=== PATIENT | female | born 1975 | race Caucasian/White ===

== ENCOUNTER 2016-12-07 19:47 | Emergency (ER) | payer SELFPAY ==
[~2016-12-07] VITALS: Ht 162.6 cm; Wt 120.0 kg
[~2016-12-07 19:47] MED LIST: FAMO40TA52 PO; HYD25 PO; MAG355OR14 PO; NAPR-260 PO
[2016-12-07 19:49] VITALS: Ht 162.6 cm; Wt 120.0 kg
[2016-12-07] MEDS ORDERED: IBUP-1542 PO (21:15)
[2016-12-07] MEDS ORDERED: AZIT250T94 PO (21:15)
[2016-12-07] MEDS ORDERED: PROM5SYR2 PO (21:15)
--- NOTE | 2016-12-07 21:17 | ERD ---
ER Documentation Chief Complaint Date/Time DATE: 12/07/16 TIME: 21:16 Chief Complaint cough x 5 days HPI 1-year-old female presents with productive cough for last 5 days. She has a burning sensation in her throat when she coughs. She also has fevers. She denies any sustained anterior chest pain, vomiting, abdominal pain, diarrhea. She denies any previous lung problems. ROS All systems reviewed and are negative except as per history of present illness. Medications Home Meds Active Scripts Ibuprofen* (Motrin*) 600 Mg Tab, 600 MG PO Q6, #15 TAB Prov:GIORGI CHUNG MD 12/07/16 Promethazine HCl/Codeine (Prometh-Codein 6.25-10 mg/5 ml) 5 Ml Syrup, 5 ML PO QID for 5 Days 6 OZ Prov:GIORGI CHUNG MD 12/07/16 Azithromycin* (Zithromax*) 250 Mg Tablet, 250 MG PO .ZPACK DIRECTED, #6 TAB TAKE 500 MG (2 TABS) THE FIRST DAY THEN 250 MG (1 TAB) DAYS 2-5 Prov:GIORGI CHUNG MD 12/07/16 Hydrochlorothiazide* (Hydrochlorothiazide*) 25 Mg Tab, 25 MG PO DAILY, #30 TAB Prov:ISABELLE FRANCO MD 09/24/16 Famotidine* (Famotidine*) 40 Mg Tablet, 40 MG PO HS, #30 TAB Prov:ISABELLE FRANCO MD 09/24/16 Mag Hydrox/Al Hydrox/Simeth (Maalox Advanced Suspension) 355 Ml Oral.susp, 2 TSP PO TID for PAIN, #24 OZ Prov:ISABELLE FRANCO MD 09/24/16 Naproxen* (Naprosyn*) 500 Mg Tablet, 500 MG PO BID Y for PAIN AND/OR INFLAMMATION, #30 TAB Prov:ISABELLE FRANCO MD 09/24/16 Allergies Allergies: Coded Allergies: No Known Allergy (Unverified , 09/24/16) PMhx/Soc History of Surgery: No Anesthesia Reaction: No Hx Neurological Disorder: No Hx Respiratory Disorders: No Hx Cardiac Disorders: No Hx Psychiatric Problems: No Hx Miscellaneous Medical Probl: No Hx Alcohol Use: No Hx Substance Use: No Hx Tobacco Use: No Physical Exam Vitals Vital Signs Date Time Temp Pulse Resp B/P Pulse Ox O2 Delivery O2 Flow Rate FiO2 12/07/16 19:49 98.7 106 20 167/96 98 Physical Exam Const: [] Alert, [id number] per Head: Atraumatic Eyes: Normal Conjunctiva ENT: Normal External Ears, Nose and Mouth. Neck: Full range of motion..~ No meningismus. Resp: Clear to auscultation bilaterally. No rales or retractions appreciated. Cardio: Regular rate and rhythm, no murmurs Abd: Soft, non tender, non distended. Normal bowel sounds Skin: No petechiae or rashes Back: No midline or flank tenderness Ext: No cyanosis, or edema Neur: Awake and alert Psych: Normal Mood and Affect Results 24 hrs Current Medications Medications (Trade) Dose Ordered Sig/Chavo Route PRN Reason Start Time Stop Time Status Last Admin Dose Admin Promethazine HCl/ Codeine (Phenergan/ Codeine) 10 ml ONCE ONCE PO 12/07/16 21:30 12/07/16 21:31 Ibuprofen (Motrin) 600 mg ONCE ONCE PO 12/07/16 21:30 12/07/16 21:31 Procedures/MDM Patient presents with a productive cough last week with some pain in her throat with coughing. There are no signs or symptoms of hypoxemia, respiratory distress, symptoms to suggest pulmonary aneurysm, acute coronary syndrome. She will treated with promethazine with codeine, Zithromax ibuprofen. The patient was stable with no new complaints during the ER course. Clinically, there is no current evidence to suggest meningitis, sepsis, acute abdomen, pneumonia, acute coronary syndrome, pulmonary embolism, or any other emergent condition appearing to require further evaluation or hospitalization. The patient should certainly return for any new or worsening symptoms per the aftercare instructions. They should otherwise follow-up with her primary care doctor for reevaluation this week. Departure Diagnosis: Primary Impression: Cough Additional Impression: Bronchitis Condition: Stable Patient Instructions: Acute Bronchitis GIORGI CHUNG MD Dec 07, 2016 21:17
[2016-12-07] MEDS ORDERED: IBUPROFEN 600 MG TAB PO ONE (21:30)
[2016-12-07] MEDS ORDERED: PROMETHAZINE/CODEINE 5ML CUP PO ONE (21:30)
== END 2016-12-07 22:35 | disposition home or self-care (01) ==
LOC: FTE 19:47
DX: R05 Cough (principal); J20.9 Acute bronchitis, unspecified
CPT/HCPCS: 99284

== ENCOUNTER 2019-04-18 09:56 | Emergency (ER) | payer MEDICAID ==
[~2019-04-18] VITALS: Wt 105.0 kg
[~2019-04-18 09:56] MED LIST changes: +AZIT250T PO; +FAMO40TA5 PO; -FAMO40TA52 PO; -HYD25 PO; +HYDR25TA6 PO; +IBUP-1542 PO; -NAPR-260 PO; +NAPR-985 PO; +PROM5SYR2 PO
[2019-04-18 09:58] VITALS: BP 160/96; PULSE 90; RESP 20
[2019-04-18] MEDS ORDERED: BENZONATATE 100 MG CAP PO ONE (10:30)
[2019-04-18] MEDS ORDERED: PHEN177S43 MT (10:42)
[2019-04-18] MEDS ORDERED: BENZ200C68 PO (10:42)
--- NOTE | 2019-04-18 17:26 | ERD ---
ER Documentation Chief Complaint Chief Complaint cough and congestion with mild sob for the past 3 wks. no fevers HPI Patient is a 43-year-old female with no significant past medical history presenting to the emergency department complaining of intermittent productive cough for the past 4 weeks. She is also had sore throat. Symptoms are moderate in severity. She tried [id number] medication with some relief. She denies any fevers, chills, or other symptoms at this time. ROS All systems reviewed and are negative except as per history of present illness. Medications Home Meds Active Scripts Phenol* (Chloraseptic* Mayfield) 177 Ml Mayfield.pump, 2 SPRAY MT Q2H PRN for SORE THROAT, #1 BOTTLE Prov:JEISON BURRELL PA-C 04/18/19 Benzonatate* (Benzonatate*) 200 Mg Capsule, 200 MG PO TID PRN for COUGH, #20 CAP Prov:JEISON BURRELL PA-C 04/18/19 Ibuprofen* (Motrin*) 600 Mg Tab, 600 MG PO Q6, #15 TAB Prov:GIORGI CHUNG MD 12/07/16 Promethazine HCl/Codeine (Prometh-Codein 6.25-10 mg/5 ml) 5 Ml Syrup, 5 ML PO QID for 5 Days 6 OZ Prov:GIORGI CHUNG MD 12/07/16 Azithromycin* (Zithromax*) 250 Mg Tablet, 250 MG PO .ZPACK DIRECTED, #6 TAB TAKE 500 MG (2 TABS) THE FIRST DAY THEN 250 MG (1 TAB) DAYS 2-5 Prov:GIORGI CHUNG MD 12/07/16 Hydrochlorothiazide* (Hydrochlorothiazide*) 25 Mg Tab, 25 MG PO DAILY, #30 TAB Prov:ISABELLE FRANCO MD 09/24/16 Famotidine* (Famotidine*) 40 Mg Tablet, 40 MG PO HS, #30 TAB Prov:ISABELLE FRANCO MD 09/24/16 Mag Hydrox/Al Hydrox/Simeth (Maalox Advanced Suspension) 355 Ml Oral.susp, 2 TSP PO TID for PAIN, #24 OZ Prov:ISABELLE FRANCO MD 09/24/16 Naproxen* (Naprosyn*) 500 Mg Tablet, 500 MG PO BID PRN for PAIN AND/OR INFLAMMATION, #30 TAB Prov:ISABELLE FRANCO MD 09/24/16 Allergies Allergies: Coded Allergies: No Known Allergy (Unverified , 09/24/16) PMhx/Soc Medical and Surgical Hx: pt denies Medical Hx, pt denies Surgical Hx History of Surgery: No Anesthesia Reaction: No Hx Neurological Disorder: No Hx Respiratory Disorders: No Hx Cardiac Disorders: No Hx Psychiatric Problems: No Hx Miscellaneous Medical Probl: No Hx Alcohol Use: No Hx Substance Use: No Hx Tobacco Use: No FmHx Family History: No diabetes Physical Exam Vitals Vital Signs Date Temp Pulse Resp B/P (MAP) Pulse Ox O2 O2 Flow FiO2 Time Delivery Rate 04/18/19 99.0 90 20 160/96 98 09:58 (117) Physical Exam Const: No acute distress Head: Atraumatic Eyes: Normal Conjunctiva ENT: Normal External Ears, Nose and Mouth. Neck: Full range of motion. No meningismus. Resp: Clear to auscultation bilaterally Cardio: Regular rate and rhythm, no murmurs Skin: No petechiae or rashes Ext: No cyanosis, or edema Neur: Awake and alert Psych: Normal Mood and Affect Results 24 hrs Current Medications Medications Dose Sig/Chavo Start Time Status Last (Trade) Ordered Route PRN Stop Time Admin Dose Reason Admin Benzonatate 200 mg ONCE ONCE 04/18/19 DC 04/18/19 (Tessalon) PO 10:30 10:30 04/18/19 10:31 Procedures/MDM 43-year-old female resenting to the emergency department complaints of cough for the past 4 weeks. Chest x-ray is negative for any sign of acute ab normalities and the full report interpreted by the radiologist may be viewed above. The patient's clinical presentation is very consistent with an acute viral syndrome. The patient does not exhibit any clinical signs or symptoms concerning for serious bacterial infection or systemic illness. Based on history and clinical exam findings the patient does not appear to have evidence of pneumonia, strep pharyngitis, urinary tract infection, bacteremia, sepsis, or meningitis. For these reasons I do not believe it is necessary to obtain laboratory testing or further diagnostic imaging. I believe it would be appropriate for symptom control, and close outpatient primary care follow-up. Based on patient's history of present illness and physical examination the decision was made to discharge. There is no evidence of life threatening injuries or illnesses at this time. On re-examination, patient resting in no distress, stable vital signs, reports feeling better and safe for discharge with outpatient follow up with PMD in 1-2 days. Patient given return precautions. Patient's blood pressure was elevated (>120/80) but appears stable without evidence of hypertension emergency or urgency. The patient is to follow-up and pursue outpatient monitoring and therapy with their primary care physician within 1 week and return immediately if they have any new, worsening, or concerning symptoms. Departure Diagnosis: Primary Impression: Cough Condition: Fair Patient Instructions: Cough, Chronic, Uncertain Cause, (Adult) [facility]: [facility] Usted se kimball hecho un examen mdico de control que le indica que no est en ysabel condicin que requiera tratamiento urgente en el Departamento de Emergencia. Un estudio ms profundo y el tratamiento de oliveira condicin pueden esperar sin ningn riesgo hasta que usted sea atendida/o en el consultorio de oliveira mdico o ysabel clnica. Es responsabilidad suya arreglar ysabel hector para el seguimiento del dylan. MANEJO DE CONDICIONES NO URGENTES EN EL FUTURO 1) Si usted tiene un mdico de atencin primaria: Usted debera llamar a oliveira mdico de atencin primaria antes de venir al d epartamento de emergencia. Despus de las horas de consultorio, oliveira doctor o oliveira asociado/a est disponible por telfono. El mdico o enfermero de anselmo en el servicio telefnico puede asesorarle por farshad medio para atender el problema, o dylan contrario se puede programar ysabel hector. 2) Si usted no tiene un mdico de atencin primaria: Llame al mdico o clnica de referencia que aparece abajo carlito las horas de consultorio para hacer ysabel hector para que le vean. CLINICAS: [facility] [phone] [facility] [phone] [facility]. [facility] [phone] [place] [id number] [phone] [place] [id number] [phone] [facility]. [phone] [address] Additional Instructions: Llame al doctor MAANA y nida ysabel HECTOR PARA DENTRO DE 1-2 EDMONDSON.Dgale a la secretaria que nosotros le instruimos hacer esta hector.Avise o llame si oliveira condicin se empeora antes de la hector. Regresa aqui si peor o no mejor. JEISON BURRELL PA-C April 18, 2019 17:26
== END 2019-04-18 11:04 | disposition home or self-care (01) ==
LOC: FTE 09:56
DX: R05 Cough (principal)
CPT/HCPCS: 71045; Z7502; Z7610